=== PATIENT | female | born 1985 | race Asian ===

== ENCOUNTER → 2018-06-22 05:12 | Emergency (ER) | payer BC ==
[~2018-06-22 05:12] MED LIST: Ketorolac INJ* 30 MG/ML 1 ML VIAL IV PUSH ONE; NS 0.9% 1000 ML** 1,000 ML IV ONE; Ondansetron INJ* 2 MG/ML VIAL IV ONE
--- NOTE | 2018-06-22 05:31 | ED ---
Abdominal Pain/Female - HPI Summary HPI Summary: Pt is a 32 y/o female who presents to the ED c/o abdominal pain. Around 4:00 this morning she suddenly woke up with RLQ pain. The pain is currently rated an 8/10 in severity, but fluctuates in severity. Pain radiates to her back. Pt also c/o chills and N/V. She denies any fever, diarrhea, or constipation. Pt denies any prior abdominal surgeries. LNMP about 3 weeks ago. She is not on control. History is translated via , as pt does not speak [place]. - History of Current Complaint Chief Complaint: EDAbdPain Stated Complaint: ABD PAIN/VOMITING PER PT'S Time Seen by Provider: 06/22/18 05:24 Hx Obtained From: Patient, Family/Waistline Joiner Overlock - Onset/Duration: Sudden Onset, Lasting Hours - since 4:00, Still Present Timing: Constant - fluctuates in intensity Severity Currently: Severe Pain Intensity: 8 Pain Scale Used: 0-10 Numeric Location: Discrete At: RLQ Associated Signs and Symptoms: Positive: Nausea, Vomiting. Negative: Fever, Constipation, Diarrhea Allergies/Adverse Reactions: Allergies Allergy/AdvReac Type Severity Reaction Status Date / Time No Known Allergies Allergy Verified 06/22/18 05:21 Home Medications: Home Medications NK [No Home Medications Reported] 06/22/18 [History Confirmed 06/22/18] PMH/Surg Hx/FS Hx/Imm Hx Endocrine/Hematology History: Denies: Hx Diabetes Cardiovascular History: Denies: Hx Hypertension - Surgical History Surgery Procedure, Year, and Place: None Infectious Disease History: No Infectious Disease History: Denies: Traveled Outside the [place] in Last 30 Days - Family History Known Family History: Negative: Hypertension, Diabetes - Social History Alcohol Use: None Hx Substance Use: No Substance Use Type: Reports: None Hx Tobacco Use: No Smoking Status (MU): Never Smoked Tobacco Review of Systems Positive: Chills. Negative: Fever Positive: Abdominal Pain - RLQ, Vomiting, Nausea. Negative: Diarrhea, Other - constipation Positive: Myalgia - back pain All Other Systems Reviewed And Are Negative: Yes Physical Exam - Summary Physical Exam Summary: Appearance: well appearing, no pain distress, appears comfortable at present Skin: warm, dry, reflects adequate perfusion Head/face: normal Eyes: EOMI, SOILA ENT: mucous membranes moist Neck: supple, non-tender Respiratory: CTA, breath sounds present Cardiovascular: RRR, pulses symmetrical Abdomen: non-tender, soft, no CVA tenderness, no rebound, no guarding, negative McBurneys point tenderness Bowel Sounds: present Musculoskeletal: normal, strength/ROM intact Neuro: normal, sensory motor intact, A&Ox3 Triage Information Reviewed: Yes Vital Signs On Initial Exam: Initial Vitals Temp Pulse Resp BP Pulse Ox 97.2 F 69 16 120/74 99 06/22/18 05:18 06/22/18 05:18 06/22/18 05:18 06/22/18 05:18 06/22/18 05:18 Vital Signs Reviewed: Yes Diagnostics - Vital Signs Vital Signs Temp Pulse Resp BP Pulse Ox 06/22/18 05:18 97.2 F 69 16 120/74 99 - Laboratory Result Diagrams: 06/22/18 05:43 06/22/18 05:43 Lab Statement: Any lab studies that have been ordered have been reviewed, and results considered in the medical decision making process. Abdominal Pain Fem Course/Dx - Course Course Of Treatment: Patient with abrupt onset of pain at 3 AM with episode of vomiting. Pain is largely gone at present. There is blood in the urine. CT scan is concerning for stone but formal reading is pending. The formal reading will be followed by the physician assistant brand manager and disposition made then. - Diagnoses Differential Diagnosis: Positive: Appendicitis, Ovarian Cyst, , Renal Colic, Urinary Tract Infection, Other - Ovarian torsion Provider Diagnoses: RLQ abdominal pain, Renal colic Discharge - Sign-Out/Discharge Documenting (check all that apply): Sign-Out Patient Signing out patient TO: Hermilo Evans Patient Received Moderate/Deep Sedation with Procedure: No - Discharge Plan Condition: Improved Referrals: No Primary Care Phys,NOPCP [Primary Care Provider] - - Billing Disposition and Condition Condition: IMPROVED - Attestation Statements Document Initiated by Scribe: Yes Documenting Scribe: Jennifer Pires Provider For Whom Renettaibjoe is Documenting (Include Credential): Shiv Cazares MD Scribe Attestation: Jennifer Cowan, scribed for Shiv Cazares MD on 06/22/18 at 0647. Scribe Documentation Reviewed: Yes Provider Attestation: The documentation as recorded by the Jennifer lozano accurately reflects the service I personally performed and the decisions made by me, Shiv Cazares MD Status of Scribe Document: Viewed
[2018-06-22 05:56] LABS: ABS Basophils 0 10^3/ul (0-0.2); ABS Eosinophils 0.2 10^3/ul (0-0.6); ABS Lymphocytes 1.3 10^3/ul (1.0-4.8); ABS Monocytes 0.3 10^3/ul (0-0.8); ABS Neutrophils 3.9 10^3/ul (1.5-7.7); ABS Nucleated RBC 0 10^3/ul; Eosinophil % 2.9 %; Hematocrit 36 % (33-41); Hemoglobin 12.7 g/dL (12.0-16.0); Lymphocyte % 22.4 %; Mean Corpuscular HGB Conc 35 g/dL (31-36); Mean Corpuscular Hemoglobin 30 pg (27-31); Mean Corpuscular Volume 86 fL (80-97); Mean Platelet Volume 9.3 fL (7.4-10.4); Nucleated Red Blood Cells % 0.1; Platelet Count 135 10^3/uL (150-450); Red Blood Count 4.23 10^6 /uL (3.70-4.87); Red Cell Distribution Width 13 % (10.5-15); White Blood Count 5.7 10^3/uL (3.5-10.8)
[2018-06-22 06:01] LABS: INR 1.04 (0.82-1.09)
[2018-06-22 06:07] LABS: Urine Appearance Cloudy; Urine Bacteria Absent (Absent); Urine Bilirubin Negative (Negative); Urine Blood 3+ (Negative); Urine Color Yellow; Urine Glucose Negative (Negative); Urine Ketones Negative (Negative); Urine Nitrite Negative (Negative); Urine Protein 2+(100 mg/dL) (Negative); Urine Red Blood Cell 3+(>10/hpf) (Absent); Urine Squamous Epithelial Cell Present (Absent); Urine Urobilinogen Negative (Negative); Urine White Blood Cell 1+(6-10/hpf) (Absent)
[2018-06-22 06:27] LABS: ALT 8 U/L (7-52); AST 11 U/L (13-39); Albumin/Globulin Ratio 1.7 (1-3); Alkaline Phosphatase 43 U/L (34-104); Anion Gap 6 mmol/L (2-11); BUN/Creatinine Ratio 22.8 (8-20); Blood Urea Nitrogen 13 mg/dL (6-24); C Reactive Protein < 1.00 mg/L (<8.01); CO2 Carbon Dioxide 25 mmol/L (22-32); Calcium 8.7 mg/dL (8.6-10.3); Chloride 108 mmol/L (101-111); EGFR African American 148.7 (>60); EGFR Non-African American 122.9 (>60); Globulin 2.4 g/dL (2-4); Glucose 120 mg/dL (70-100); HCG Pregnancy < 0.60 mIU/mL; Potassium 3.3 mmol/L (3.5-5.0); Sodium 139 mmol/L (135-145); Total Protein 6.4 g/dL (6.4-8.9)
--- NOTE | 2018-06-22 07:16 | PN ---
Progress Note - Progress Note Date of Service: 06/22/18 Note: Pt. received in sign out from Dr. Cazares pending CT scan. CT abd./pelvis per radiology: IMPRESSION: 1. A 2 mm right proximal ureteral stone with hydronephrosis and hydroureter. 2. Additional 3 mm nonobstructing right renal stone. 3. A small hiatal hernia. Reexamination patient is resting comfortably. Results were discussed with her and her . We'll prescribe a small course of hydrocodone, Flomax and Zofran. Advised increase fluids. To strain urine. Given information for urology for follow-up if needed. Advised to return to the ER for uncontrollable pain, vomiting, fever. Patient and understand and agree with plan.
[2018-06-22 07:46] VITALS: BP 107/68
== END | disposition home or self-care (01) ==
LOC: ED 05:12
DX: N23 Unspecified renal colic (principal); N13.2 Hydronephrosis with renal and ureteral calculous obstruction; K44.9 Diaphragmatic hernia without obstruction or gangrene
CPT/HCPCS: 36415; 74176; 80053; 81003; 81015; 83605; 83690; 84702; 85025; 85610; 86140; 87086; 96361; 96374; 99282; J2405

== ENCOUNTER 2019-03-12 08:10 | Inpatient (IN) | payer OTHER ==
[2019-03-12] MEDS ORDERED: Lactated Ringers 1000 ML Bag* 1,000 ML IV ONE ×2 (08:58→10:34)
[2019-03-12] MEDS ORDERED: Buffered Lidocaine 1% SYRIN* 1 ML/SYRINGE INTRADERM ONE (08:58)
[2019-03-12] MEDS ORDERED: Lactated Ringers 1000 ML Bag* 1,000 ML IV SCH ×3 (09:00→21:00)
--- NOTE | 2019-03-12 09:08 | HP ---
General Information - Reason for Visit Term in labor - General Information Maternal Age: 33 Grav: 2 Para: 1 SAB: 0 IEA: 0 Estimated Due Date: 03/12/19 Determined By: LMP Maternal Blood Type and Rh: AB Positive - Results this Serology/RPR Result: Non-Reactive Rubella Result: Immune HBsAg Result: Negative HIV Result: Negative GBS Culture Result: Negative Past Medical History Delivery History: Hx Uncomplicated Vaginal Delivery - 07/2014 Pertinent Past Medical History: See Records Past Medical History Comment: Kidney stones 05/2018, sees urology Pertinent Past Surgical History: None Pertinent Family History: See Records Family History Comment: Hep B cerebral thrombosis - Antepartal Records Antepartal Records: Reviewed, Complicated by: - Varicella non-immune; limited [place], translates Review of Systems Constitutional: Uncomfortable CV Complaint: No Respiratory: Shortness of Breath: No Gastrointestinal: No Nausea/Vomiting, Normal Bowel Movement Genitourinary: No Dysuria, No Bleeding, No Leaking Fluid Musculoskeletal: Contractions Neurological: No Headache, No Visual Changes Movement: Normal Exam Allergies/Adverse Reactions: Allergies No Known Allergies Allergy (Verified 06/22/18 05:21) BP 131/71 T 97.5 O2 98% RR 20 HR 71 - Measurements Height: 5 ft 1 in Weight: 175 lb Weight in lbs: [phone] Body Mass Index (BMI): 33.0 Pre- Weight: 132 lb Weight Gained This : 43 lbs and 0 ozs - Exam Breast: Breast Exam Deferred CVA: No CVA Tenderness Extremities: No Edema Heart: Normal Rhythm/Heart Sounds HEENT: No Significant Findings Lungs: Clear Bilaterally Rectal: Rectal Exam Deferred Reflexes: DTR 2+, - - no clonus Thyroid: - - WNL on entry to [facility] - Abdominal Exam Abdomen Exam: Non-Tender, Fundal Height Consistent with Dates - Ultrasound/Biophysical Profile Ultrasound Status: Not Done Targeted Exam Findings Estimated Weight: 7.5-8lb Cervical Exam: 4cm Effacement: 90% Station: 0 Presenting Part: Vertex Membrane Status: Intact Bleeding/Discharge: None EFM Findings - External Monitor Findings Baseline Heart Rate: 135 External Monitor Findings: Accelerations Present, No Pattern of Variable or Late Decelerations, Variability Moderate Contractions: Regular, Moderate, Strong, 45-90 Seconds Contraction Frequency: Q3-4 min Assessment/Plan - Assessment IUP @ 39+3 weeks gestation in active labor. No evidence acidemia. Intact membrane. - Plan Plan: Admit - Anticipate Vaginal Delivery Plan Comment: Admit to L&D. PARQ discussion with translating (declined area development consultant iPad ) of epidural for pain management. Patient opting for this, anesthesia aware. Anticipate progression to SVB. - Date/Time of Admission Date of Admission: 03/12/19 Time of Admission: 08:51
[2019-03-12] MEDS ORDERED: OBEPIDURAL* 250 ML EPIDURAL ONE (09:40)
[2019-03-12 09:47] LABS: ABS Lymphocytes 1.6 10^3/ul (1.0-4.8); ABS Monocytes 0.7 10^3/ul (0-0.8); ABS Neutrophils 8.1 10^3/ul (1.5-7.7); Eosinophil % 0.4 %; Hematocrit 39 % (35-47); Hemoglobin 14.2 g/dL (12.0-16.0); Lymphocyte % 15.1 %; Mean Corpuscular HGB Conc 36 g/dL (31-36); Mean Corpuscular Hemoglobin 33 pg (27-31); Mean Corpuscular Volume 91 fL (80-97); Mean Platelet Volume 9.2 fL (7.4-10.4); Platelet Count 174 10^3/uL (150-450); Red Blood Count 4.32 10^6 /uL (3.70-4.87); Red Cell Distribution Width 14 % (10-15); White Blood Count 10.4 10^3/uL (3.5-10.8)
[2019-03-12] MEDS ORDERED: Bupivacaine 0.25% SDV PF* 10 ML VIAL INJ ONE (10:10)
[2019-03-12 10:31] LABS: Urine Benzodiazepine Screen None Detected (None Detect); Urine Opiates Screen None Detected (None Detect)
[2019-03-12] MEDS ORDERED: Famotidine TAB* 20 MG PO PRN (10:34)
[2019-03-12] MEDS ORDERED: Phenylephrine 40 MCG/ML SYRINGE IV PUSH PRN (10:34)
[2019-03-12] MEDS ORDERED: Sodium Citrate/Citric Acid* 15 ML UDC PO PRN (10:34)
[2019-03-12] MEDS ORDERED: EPHEDrine (Pressors)* 50 MG/ML VIAL IV PUSH PRN (10:34)
[2019-03-12] MEDS ORDERED: OBEPIDURAL* 250 ML EPIDURAL SCH (11:00)
--- NOTE | 2019-03-12 15:43 | PN ---
Progress Note - Progress Note Date of Service: 03/12/19 Note: S: Patient has been very comfortable with epidural, got some sleep and otherwise resting. O: VE 8cm/100/0 FHT 140, +accels, no decels, mod irina VSS Bulging bag felt UCs 3-4 min A: IUP @ 39+3 weeks gestation in active labor No evidence acidemia P: PARQ discussion amniotomy for labor augmentation; patients in agreement. Clear fluid. Anticipate SVB.
--- NOTE | 2019-03-12 17:52 | PN ---
Progress Note - Progress Note Date of Service: 03/12/19 Note: S: Patient reports feeling rectal pressure. O: VE Ant lip/100/+1 UCs q 4-5 min FHT 135, Cat 1 A: IUP, transition Trial of pushing, lip not reducible P: Labor down then another trial of pushing.
[2019-03-12] MEDS ORDERED: Oxytocin in LR* 20 UNITS/1,000 ML BAG IVPB ONE (19:04)
[2019-03-12] MEDS ORDERED: Acetaminophen TAB* 325 MG PO PRN (20:39)
[2019-03-12] MEDS ORDERED: Witch Hazel PAD* JAR TOPICAL PRN (20:39)
[2019-03-12] MEDS ORDERED: Dibucaine 1% 28.35 GM TUBE PR PRN (20:39)
[2019-03-12] MEDS ORDERED: Glycerin ADULT SUPP PR PRN (20:39)
[2019-03-12] MEDS ORDERED: Varicella Virus Vaccine Live* 0.5 ML VIAL SUBCUT ONE (20:39)
[2019-03-12] MEDS ORDERED: Oxytocin in LR* 20 UNITS/1,000 ML BAG IVPB SCH (21:00)
--- NOTE | 2019-03-12 21:14 | PROCNOTE ---
[facility] OB: Delivery Note - Delivery A Date of : 03/12/19 Time of : 20:13 [place] Sex: Male - Emma Odonnell" Score 1 Minute: 9 Score 5 Minutes: 10 Gestational Age in Weeks and Days at Delivery: 40 Weeks and 0 Days Delivery Method: Spontaneous Vaginal Labor: Spontaneous Did Patient attempt ?: N/A, No Previous Amniotic Fluid: Clear Estimated Blood Loss: 350 Anesthesia/Analgesia: CEI for Labor Delivered By: Brennon Delgado - Nursery Level of Nursery: Regular/Bedside - Perineum Perineal Injury: Abrasion Only - Not Repaired - Events Delivery Events of Note: Pitocin During Labor - Additional Delivery Notes Additional Delivery Notes: Patient admitted with spontaneous labor. Received epidural as desired with good effect and steady progression to anterior lip with urge to push. Length of active labor 14'23", pushed 1'43". Coached through reduction of lip and stronger pushing efforts. Baby born OA to CHACHO, shoulders following smoothly with maternal efforts. Baby to maternal abdomen with spontaneous cry, HR >110. Cord doubly clamped and cut by FOB once pulsations ceased, approx 5 min. Baby with 9, 10 Apgars. Placenta delivered with gentle cord traction @ 1823. Perineum with small, hemostatic abrasion only. Baby to breast to initiate . Mother and baby stable at time of note.
[2019-03-12] MEDS ORDERED: Hydrocortisone 1% CREAM* 30 GM TUBE TOPICAL PRN (21:15)
[2019-03-12] MEDS ORDERED: Ammonia Inhalant* 1 EA AMP ONE (21:21)
[2019-03-12] MEDS: Ibuprofen TAB* 600 MG PO PRN (21:47)
[2019-03-13] MEDS: Docusate CAP* 100 MG PO SCH ×4 (02:35→20:23)
[2019-03-13] MEDS ORDERED: Lidocaine 1% MPF ** 5 ML VIAL ONE (06:59)
[2019-03-13 07:59] LABS: ABS Basophils 0.1 10^3/ul (0-0.2); ABS Lymphocytes 1.8 10^3/ul (1.0-4.8); ABS Monocytes 0.9 10^3/ul (0-0.8); ABS Neutrophils 13.5 10^3/ul (1.5-7.7); Eosinophil % 0.2 %; Hematocrit 32 % (35-47); Hemoglobin 11.7 g/dL (12.0-16.0); Lymphocyte % 11.1 %; Mean Corpuscular HGB Conc 36 g/dL (31-36); Mean Corpuscular Hemoglobin 33 pg (27-31); Mean Corpuscular Volume 90 fL (80-97); Mean Platelet Volume 8.8 fL (7.4-10.4); Platelet Count 144 10^3/uL (150-450); Red Cell Distribution Width 14 % (10-15); White Blood Count 16.4 10^3/uL (3.5-10.8)
[2019-03-13] MEDS ORDERED: Ferrous Gluconate TAB* 324 MG TAB PO SCH (09:00)
[2019-03-13] MEDS: Ibuprofen TAB* 600 MG PO PRN (20:23)
--- NOTE | 2019-03-14 07:52 | PTEDU ---
Patient Name: LINDA LOMBARDO LINDA LOMBARDO selected video: Never Ever Shake a Baby to view on 03/14/2019 at 7:50:36 AM from [id number] 1
[2019-03-14] MEDS: Docusate CAP* 100 MG PO SCH (07:55)
[2019-03-14 08:12] VITALS: BP 104/53
== END 2019-03-14 12:54 | disposition home or self-care (01) | DRG 560 ==
LOC: MCHOBOUT 08:10 → MCHOB 08:51
PROVIDERS: ADMIT Midwife; ATTEND Midwife
PROC: 10E0XZZ Delivery of Products of Conception, External Approach (ICD-10-PCS; principal; 2019-03-12)
PROC: 10907ZC Drainage of Amniotic Fluid, Therapeutic from Products of Conception, Via Natural or Artificial Opening (ICD-10-PCS; 2019-03-12)
PROC: 4A1HXCZ Monitoring of Products of Conception, Cardiac Rate, External Approach (ICD-10-PCS; 2019-03-12)
DX: O71.82 Other specified trauma to perineum and vulva (principal); Z37.0 Single live birth; Z3A.39 39 weeks gestation of pregnancy
CPT/HCPCS: 36415; 80307; 85025; 86850; 86900; 86901; A9270-GY; J3490